=== PATIENT | female | born 1970 | race Caucasian/White ===

== ENCOUNTER → 2018-07-20 | Outpatient (CLI) | payer OTHER ==
--- NOTE | 2018-07-20 18:17 | MR ---
EXAMINATION TYPE: MR lumbar spine wo con DATE OF EXAM: 07/20/2018 COMPARISON: None HISTORY: Lumbar disc disorder / Pain CONTRAST: 0 mL intravenous Gadavist. TECHNIQUE: Multiplanar, multisequence images of the lumbar spine were acquired. FINDINGS: L5-S1: No significant disc bulge or disc herniation. No spinal canal stenosis. Moderate bilateral f oraminal narrowing is present with disc extension into the foramen. Mild facet hypertrophy is present . L4-L5: Mild disc space narrowing is present. Broad-based residual disc bulge is present with moderate anterior thecal sac flattening. Small subligamentous disc extension superiorly is evident. Facet hyp ertrophy and ligamentum flavum laxity is present with posterior lateral thecal sac compression. Mild spinal canal narrowing is present. Moderate right and moderate to severe left foraminal stenosis is p resent. Correlate for radicular symptoms. L3-L4: There is a broad-based disc herniation present with moderate anterior thecal sac flattening. C entral subligamentous disc extension extends inferiorly. Disc space narrowing is present. Mild facet hypertrophy is present. Large hemangioma appears to be present within the L3 vertebral body. L2-L3: There is a large broad disc herniation L2-3. This has moderate anterior thecal sac compression . Mild facet hypertrophy is present with posterior lateral thecal sac compression. No spinal canal st enosis present. Some lateral canal narrowing may be present. L1-L2: Broad-based disc bulge is present with mild anterior thecal sac flattening. Facet hypertrophy has some posterior lateral thecal sac compression on the right. No spinal canal stenosis is present. Neural foramen are patent T12-L1: No significant disc bulge or disc herniation. No spinal canal stenosis. No foraminal stenos is. IMPRESSION: 1. Broad-based disc herniation L2-3 with moderate anterior thecal sac compression no AP spinal canal stenosis present. Lateral canal narrowing may be present. 2. Broad-based disc herniation with subligamentous disc extension inferiorly centrally at L3-4. No sp inal canal stenosis is present. 3. Broad-based disc bulging from residual disc material at L4-5. Small amount subligamentous disc ext ension superiorly is present centrally. 4. Moderate to severe foraminal narrowing L4-5 and L5-S1 discussed above. Correlate for radicular sym ptoms
== END ==
LOC: RADMRIMAIN 10:50
PROVIDERS: ATTEND Family Medicine
DX: M99.74 Connective tissue and disc stenosis of intervertebral foramina of sacral region (principal); M51.26 Other intervertebral disc displacement, lumbar region
CPT/HCPCS: 72148